=== PATIENT | female | born 1960 | race African-American/Black ===

== ENCOUNTER 2016-12-21 18:00 | Emergency (ER) | payer OTHER ==
[~2016-12-21] VITALS: Ht 170.2 cm; Wt 63.6 kg
[~2016-12-21 18:00] MED LIST: CLON0.2T PO
[2016-12-21] MEDS ORDERED: IBUP-2070 PO (18:47)
[2016-12-21] MEDS ORDERED: KETOROLAC TROMETHAMINE 30 MG/ML VIAL IM ONE (21:15)
[2016-12-21 21:48] VITALS: BP 137/82
== END 2016-12-21 22:12 | disposition home or self-care (01) ==
LOC: EMS 18:03
DX: M17.11 Unilateral primary osteoarthritis, right knee (principal); I10 Essential (primary) hypertension; E03.9 Hypothyroidism, unspecified; F17.210 Nicotine dependence, cigarettes, uncomplicated; Z88.8 Allergy status to other drugs, medicaments and biological substances
CPT/HCPCS: 73562; 96372; 99284; J1885

== ENCOUNTER 2017-04-15 11:24 | Emergency (ER) | payer OTHER ==
[~2017-04-15] VITALS: Ht 170.2 cm; Wt 68.2 kg
[~2017-04-15 11:24] MED LIST changes: +IBUP-2070 PO
[2017-04-15 12:16] LABS: APPEARANCE,URINE CLEAR (CLEAR); GLUCOSE, URINE (UA) NEGATIVE (NEGATIVE); KETONES,URINE NEGATIVE (NEGATIVE); LEUKOCYTE ESTERASE ,URINE SMALL (NEGATIVE); OCCULT BLOOD,URINE NEGATIVE (NEGATIVE); PROTEIN,URINE NEGATIVE (NEGATIVE)
[2017-04-15 12:25] LABS: RBC,URINE None Seen /HPF (0-2); SQUAMOUS EPITHELIAL CELL,UR None Seen /LPF (None Seen)
[2017-04-15] MEDS: KETOROLAC TROMETHAMINE 30 MG/ML VIAL IM ONE (13:54)
[2017-04-15 14:23] VITALS: BP 158/92
== END 2017-04-15 14:32 | disposition home or self-care (01) ==
LOC: EMS 11:28
DX: M54.9 Dorsalgia, unspecified (principal); F17.210 Nicotine dependence, cigarettes, uncomplicated; I10 Essential (primary) hypertension; E03.9 Hypothyroidism, unspecified; M19.90 Unspecified osteoarthritis, unspecified site; Z88.8 Allergy status to other drugs, medicaments and biological substances
CPT/HCPCS: 81001; 96372; 99283; J1885